=== PATIENT | female | born 1950 | race Caucasian/White ===

== ENCOUNTER → 2018-09-15 | Outpatient (CLI) | payer MEDICARE, BC ==
[~2018-09-15] MED LIST: IOPAMIDOL 76% 75 ML INFUS BTL 75 ML ONE
--- NOTE | 2018-09-15 08:52 | RADIOLOGY IMAGING REPORT ---
FACILITY: [facility] PATIENT NAME: Natalia Roca : 1950 MR: [id number] V: [id number] EXAM DATE: ORDERING PHYSICIAN: ALEENA PABLO TECHNOLOGIST: Location: [facility] Patient: Natalia Roca : 1950 Visit/Account:[id number] Date of Sevice: 09/15/2018 CHEST W CONTRAST HISTORY: Breast cancer TECHNIQUE: CT imaging was obtained through the chest with intravenous contrast. One of the followin g dose optimization techniques was utilized in the performance of this exam: automated exposure contr ol; adjustment of the mA and/or kv according to patient size; or use of iterative reconstruction tech nique. Specific details can be referenced in the facility's radiology CT exam operational policy. CONTRAST: 75 cc of Isovue-370 COMPARISON: None. FINDINGS: CHEST: Lower neck: Negative. Vessels: Negative Heart and pericardium: Negative. Mediastinum/hilum/lymph nodes: Right axillary level 1-3 lymph nodes with the largest level 2-3 lymph node measuring 2.8 x 1.5 cm (image 23). A right level 2 axillary node measures 1.8 x 1.5 cm (image 2 8). Left axillary lymph node dissection without left axillary lymphadenopathy. Nonenlarged right rupal r lymph nodes measuring up to 1.0 x 0.5 cm. Lungs/pleura: 3 mm noncalcified left lower lobe nodule (series 4 image 212). 2 mm right apical pulmo nary nodule (image 51). 2 mm right upper lobe nodule (image 103). No pleural effusion. Upper abdomen: Gallstones. Subcentimeter splenic cyst. 1.3 x 1.3 cm simple left renal cyst. Bones/soft tissues: 1.0 x 1.3 cm enhancing left breast nodule (image 49). 2 mm soft tissue nodule wi thin the right anterior lower chest wall IMPRESSION: 1. Right axillary lymphadenopathy outlined above with the largest lymph node measuring 2.8 x 1.5 cm. 2. Indeterminate noncalcified pulmonary nodules measuring up to 3 mm which should be followed. 3. 1.3 x 1.0 cm enhancing nodule within the left breast. Recommend correlation with other breast imag ing modalities and physical examination. 4. 2 mm soft tissue nodule within the right lower anterior chest wall which can be followed. Report Dictated By: Keron Sauer MD at 09/15/2018 8:16 AM Report E-Signed By: Keron Sauer MD at 09/15/2018 8:47 AM WSN:[id number]
== END ==
LOC: CT 06:52
PROVIDERS: ATTEND Internal Medicine Hematology & Oncology
DX: N63.20 Unspecified lump in the left breast, unspecified quadrant (principal); R91.8 Other nonspecific abnormal finding of lung field; R59.0 Localized enlarged lymph nodes; C50.812 Malignant neoplasm of overlapping sites of left female breast; Z17.0 Estrogen receptor positive status [ER+]; C50.911 Malignant neoplasm of unspecified site of right female breast; C77.3 Secondary and unspecified malignant neoplasm of axilla and upper limb lymph nodes; C77.1 Secondary and unspecified malignant neoplasm of intrathoracic lymph nodes
CPT/HCPCS: 71260; Q9967

== ENCOUNTER 2018-10-20 16:57 | Outpatient (RCR) | payer MEDICARE ==
[2018-10-21 12:59] VITALS: BP 139/77
[2018-10-21] MEDS ORDERED: PEGFILGRASTIM 6 MG/0.6 ML SYR SUBQ ONE (13:00)
== END 2018-11-27 08:11 | disposition home or self-care (01) ==
LOC: MERGE 16:57 → SPU 16:57
PROVIDERS: ATTEND Internal Medicine Hematology & Oncology
DX: C50.911 Malignant neoplasm of unspecified site of right female breast (principal); C77.3 Secondary and unspecified malignant neoplasm of axilla and upper limb lymph nodes
CPT/HCPCS: 96372; J2505

== ENCOUNTER 2019-03-16 11:22 | Outpatient (RCR) | payer MEDICARE ==
[2019-03-16] MEDS ORDERED: ASCO-182 PO (11:57)
[2019-03-16] MEDS ORDERED: IODI1GRA2 PO (11:57)
[2019-03-16] MEDS ORDERED: OMEG100T3 PO (11:57)
[2019-03-16] MEDS ORDERED: FLAX100041 PO (11:57)
[2019-03-16] MEDS ORDERED: LEVO88TA43 PO (11:57)
[2019-03-16] MEDS ORDERED: CHOL10005 PO (11:57)
[2019-03-16 11:58] VITALS: BP 141/75
--- NOTE | 2019-03-17 16:01 | ONCOLOGY CONSULTATION ---
EVENT DATE: March 16, 2019 CHIEF COMPLAINT/REASON FOR CONSULTATION Recurrent breast carcinoma with complex history listed below. Patient is referred for radiation therapy consideration to regional lymph nodes (right axilla and supraclavicular fossa). This is a 68-year-old lady who is referred to myself for radiation therapy considerations by Dr. Eaton at [facility]. Excellent summary note accompanied the patient, created 02/10/19. Oncology history is briefly listed below in a serial fashion for record review. ONCOLOGY HISTORY 1. Lumpectomy and lymph node dissection 09/09/1999. Tumor size 1.9 cm. Tumor is receptor negative and lymph node negative. Four cycles of AC chemotherapy and postoperative radiation therapy. 2. Right breast DCIS diagnosed 07/02. Tumor was ER/VA positive, treated with lumpectomy and radiation therapy. 3. 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 Tumor was ER and VA receptor positive, HER2 negative with incidental right axillary and subpectoral lymphadenopathy on staging. Biopsy of mediastinal lymph nodes is benign. Patient treated with TC chemotherapy in a neoadjuvant fashion. 4. Patient underwent bilateral mastectomy 02/01/2019. Left breast tumor was found to be 7.5 cm in maximal dimension with mixed ductal and lobular features, grade 2, with invasion of the dermis behind the nipple and muscle and skeletal involvement. Tumor was ER and VA receptor positive at 96% and 69%, HER2 negative. Margins greater than 2 mm posterior and 5 mm to other locations. Right breast specimen revealed the invasive lobular carcinoma to be 7.1 cm, low grade, with direct invasion to dermis behind the nipple without skin ulceration. No LVI. Margins negative. Tumor metastatic to 8 of 10 right axillary lymph nodes along with one intramammary lymph node positive. Largest lymph node was 2.5 cm with extracapsular extension. Tumor is ER positive 82%, VA 15%, HER2 negative. Ki-67 low at 1%. 5. Patient referred for radiation therapy considerations to the right axilla and supraclavicular fossa lymph nodes. She is also advised to start anastrozole daily and continue for up to 10 years. 6. Last staging study was a PET/CT scan on 01/01/19. No metastatic disease identified. Persistent uptake in the mediastinal lymph nodes, which was stable and has previously been sampled as benign on FNA cytology with endobronchial ultrasound 09/20/18. HISTORY This is a pleasant 68-year-old lady from the [facility] with an extensive history of breast carcinoma listed above. She is referred to me by Dr. Eaton with an excellent summary included for review today. The patient is accompanied by her . Following the patient's most recent bilateral mastectomy, she has been experiencing some tightness related to her mastectomy scars bilaterally. 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 I discussed the etiology of the pain and options regarding management. She declined referral for physical therapy at this time, but is working daily on her arm exercises. The patient denies any new or persistent headaches, weight loss, or any persistent bone pain. Patient is being seen for initial assessment today. ALLERGIES CODEINE, MORPHINE. PAST SURGICAL HISTORY 1. See above for prior biopsies of the breast dates. 2. Mastectomy date was 02/01/19. SOCIAL HISTORY Patient is . Two children, ages 43 and 47. She is retired. She does not smoke. She does drink one glass of wine per week. REVIEW OF SYSTEMS Notable for the tightness around the mastectomy scars as listed above, numbness along the medial aspect of the inner forearm on the right side to the level of the elbow. She is not aware of any palpable venous cords. She is not having any drainage from the incision. PHYSICAL EXAMINATION GENERAL: A 68-year-old female, medium frame. VITAL SIGNS: Weight 139. Height 62 inches. BP 141/75, pulse 93, respirations 16, O2 sat 94% on room air. LUNGS: Clear to auscultation bilaterally. HEART: Sounds regular. CHEST: Mastectomy scar, which is continuous anteriorly, was inspected with no signs of any active drainage. She does have a small area of numbness inferior and superior to the scar as expected. No suspicious subcutaneous nodularity at this time. No palpable axillary or supraclavicular fossa lymphadenopathy at this time. EXTREMITIES: No swelling on the upper extremities. ABDOMEN: Soft. No gross organomegaly. NEUROLOGIC: Grossly intact. MUSCULOSKELETAL: Notable for a slight limitation in patient's full arm extension bilaterally. She would like to work on exercises herself and was also given a few instructions today on some exercises to utilize. IMPRESSION This is a 68-year-old lady who was diagnosed with stage I left-sided breast carcinoma at age 49. She underwent appropriate surgery, Adriamycin and cyclophosphamide (AC) chemotherapy and radiation at that time. At age 58, she was diagnosed with ductal carcinoma in situ of the right breast and underwent lumpectomy and radiation therapy. Unfortunately at age 68 (10 to 19 years remote from her prior treatment), the patient was diagnosed with bilateral invasive ductal and lobular carcinoma. She appears to have lobular carcinoma predominantly on the right side and invasive ductal and lobular carcinoma on the left side with tumors approaching the 7 to 8 cm size bilaterally. The tumor on the right breast demonstrated lymph node metastasis with extracapsular extension. Subpectoral lymph node was positive as well as additional lymph nodes in the right axilla, and total of 8 of 10 lymph nodes were positive for malignant cells. The largest focus was 2.5 cm, which was located at the site of the sentinel lymph node with extranodal extension. She also had extranodal extension in additional lymph nodes in the right axilla. Additional risk factors for recurrence also include dermal invasion underneath the nipple, which surprisingly was on both breast specimens. On the left side, the tumor invaded into skeletal muscle. RECOMMENDATIONS I concur with the recommendations by Dr. Eaton. The safest plan would be to proceed with radiation therapy to the right axilla and follow the lymph node chain up to the supraclavicular fossa. No radiotherapy will be delivered to the chest wall unless there is obvious tumor recurrence at that location, in which case the patient would need a local excision, followed by superficial electron beam or tangential quispe to a relatively small volume. I told the patient I would like to proceed with targeting simulation in two weeks to allow further time for her to regain full arm mobility and for further healing. The radiation course would actually start the following week. That juncture should be approximately five to six weeks remote from the surgery. I explained the rational for treatment. I also encouraged the patient to utilize the aromatase inhibitor as advised by Dr. Eaton. She did ask if she could take naturopathic medications. She has contacted an individual already at this juncture and is awaiting formal consultation. I told her that would be fine as long as she lets her providers know exactly which agents she is taking in case she had any side effects or cross reactions. All questions were answered to the patient's satisfaction today over a one-hour visit. Presently, I would plan to deliver 5040 cGy in 28 fractions with subsequent field reduction to the site where the lymph nodes were present with extracapsular extension and boost those lymph nodes to a total dose of 5940 cGy. Treatment course will be completed over a time frame of approximately 33 fractions as standard fractionation. Thank you for the referral and opportunity to consult with the patient. Please do not hesitate to contact me if there are any questions or concerns regarding the above recommendations. ADDENDUM I will note for the patient's chart she would like to minimize surveillance studies in the future that utilize CT scans or PET scans due to her concern about radiation exposure. I told her I would pass the information along to Dr. Eaton and will certainly consider her wishes before making recommendations for radiographic studies. I told her I did need a treatment planning CT scan at this time to place appropriate markings in position for reference points for the computer planning. I also informed her the PET/CT study would be very useful to her oncologists the first two years following therapy to realize the response to treatments, both systemic and local. Dr.Tobin TREVIZO
== END 2019-03-16 18:00 | disposition home or self-care (01) ==
LOC: SPU 11:22
PROVIDERS: ATTEND Radiology Radiation Oncology
DX: C50.911 Malignant neoplasm of unspecified site of right female breast (principal); C50.912 Malignant neoplasm of unspecified site of left female breast; C77.3 Secondary and unspecified malignant neoplasm of axilla and upper limb lymph nodes
CPT/HCPCS: 99202

== ENCOUNTER 2019-03-27 16:12 | Outpatient (RCR) | payer MEDICARE ==
[~2019-03-27 16:12] MED LIST changes: +ASCO-182 PO; +CHOL10005 PO; +FLAX100041 PO; +IODI1GRA2 PO; -IOPAMIDOL 76% 75 ML INFUS BTL 75 ML ONE; +LEVO88TA43 PO; +OMEG100T3 PO
== END 2019-03-28 10:13 | disposition disaster alternative care site (69) ==
LOC: RAON 16:12
PROVIDERS: ATTEND Radiology Radiation Oncology
DX: C50.812 Malignant neoplasm of overlapping sites of left female breast (principal); Z17.0 Estrogen receptor positive status [ER+]; C50.811 Malignant neoplasm of overlapping sites of right female breast

== ENCOUNTER → 2019-03-30 | Outpatient (CLI) | payer MEDICARE, BC | LOC: LAB 09:06 | DX: E01.8 Other iodine-deficiency related thyroid disorders and allied conditions (principal) | CPT/HCPCS: 36415 ==

== ENCOUNTER 2019-05-21 10:07 | Outpatient (RCR) | payer MEDICARE, BC ==
--- NOTE | 2019-03-28 14:24 | ONCOLOGY CONSULTATION ---
EVENT DATE: March 16, 2019 CHIEF COMPLAINT/REASON FOR CONSULTATION Recurrent breast carcinoma with complex history listed below. Patient is referred for radiation therapy consideration to regional lymph nodes (right axilla and supraclavicular fossa). This is a 68-year-old lady who is referred to myself for radiation therapy considerations by Dr. Eaton at [facility]. Excellent summary note accompanied the patient, created 02/10/19. Oncology history is briefly listed below in a serial fashion for record review. ONCOLOGY HISTORY 1. Lumpectomy and lymph node dissection 09/09/1999. Tumor size 1.9 cm. Tumor is receptor negative and lymph node negative. Four cycles of AC chemotherapy and postoperative radiation therapy. 2. Right breast DCIS diagnosed 07/02. Tumor was ER/IN positive, treated with lumpectomy and radiation therapy. 3. 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 Tumor was ER and IN receptor positive, HER2 negative with incidental right axillary and subpectoral lymphadenopathy on staging. Biopsy of mediastinal lymph nodes is benign. Patient treated with TC chemotherapy in a neoadjuvant fashion. 4. Patient underwent bilateral mastectomy 02/01/2019. Left breast tumor was found to be 7.5 cm in maximal dimension with mixed ductal and lobular features, grade 2, with invasion of the dermis behind the nipple and muscle and skeletal involvement. Tumor was ER and IN receptor positive at 96% and 69%, HER2 negative. Margins greater than 2 mm posterior and 5 mm to other locations. Right breast specimen revealed the invasive lobular carcinoma to be 7.1 cm, low grade, with direct invasion to dermis behind the nipple without skin ulceration. No LVI. Margins negative. Tumor metastatic to 8 of 10 right axillary lymph nodes along with one intramammary lymph node positive. Largest lymph node was 2.5 cm with extracapsular extension. Tumor is ER positive 82%, IN 15%, HER2 negative. Ki-67 low at 1%. 5. Patient referred for radiation therapy considerations to the right axilla and supraclavicular fossa lymph nodes. She is also advised to start anastrozole daily and continue for up to 10 years. 6. Last staging study was a PET/CT scan on 01/01/19. No metastatic disease identified. Persistent uptake in the mediastinal lymph nodes, which was stable and has previously been sampled as benign on FNA cytology with endobronchial ultrasound 09/20/18. HISTORY This is a pleasant 68-year-old lady from the [facility] with an extensive history of breast carcinoma listed above. She is referred to me by Dr. Eaton with an excellent summary included for review today. The patient is accompanied by her . Following the patient's most recent bilateral mastectomy, she has been experiencing some tightness related to her mastectomy scars bilaterally. 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 I discussed the etiology of the pain and options regarding management. She declined referral for physical therapy at this time, but is working daily on her arm exercises. The patient denies any new or persistent headaches, weight loss, or any persistent bone pain. Patient is being seen for initial assessment today. ALLERGIES CODEINE, MORPHINE. PAST SURGICAL HISTORY 1. See above for prior biopsies of the breast dates. 2. Mastectomy date was 02/01/19. SOCIAL HISTORY Patient is . Two children, ages 43 and 47. She is retired. She does not smoke. She does drink one glass of wine per week. REVIEW OF SYSTEMS Notable for the tightness around the mastectomy scars as listed above, numbness along the medial aspect of the inner forearm on the right side to the level of the elbow. She is not aware of any palpable venous cords. She is not having any drainage from the incision. PHYSICAL EXAMINATION GENERAL: A 68-year-old female, medium frame. VITAL SIGNS: Weight 139. Height 62 inches. BP 141/75, pulse 93, respirations 16, O2 sat 94% on room air. LUNGS: Clear to auscultation bilaterally. HEART: Sounds regular. CHEST: Mastectomy scar, which is continuous anteriorly, was inspected with no signs of any active drainage. She does have a small area of numbness inferior and superior to the scar as expected. No suspicious subcutaneous nodularity at this time. No palpable axillary or supraclavicular fossa lymphadenopathy at this time. EXTREMITIES: No swelling on the upper extremities. ABDOMEN: Soft. No gross organomegaly. NEUROLOGIC: Grossly intact. MUSCULOSKELETAL: Notable for a slight limitation in patient's full arm extension bilaterally. She would like to work on exercises herself and was also given a few instructions today on some exercises to utilize. IMPRESSION This is a 68-year-old lady who was diagnosed with stage I left-sided breast carcinoma at age 49. She underwent appropriate surgery, Adriamycin and cyclophosphamide (AC) chemotherapy and radiation at that time. At age 58, she was diagnosed with ductal carcinoma in situ of the right breast and underwent lumpectomy and radiation therapy. Unfortunately at age 68 (10 to 19 years remote from her prior treatment), the patient was diagnosed with bilateral invasive ductal and lobular carcinoma. She appears to have lobular carcinoma predominantly on the right side and invasive ductal and lobular carcinoma on the left side with tumors approaching the 7 to 8 cm size bilaterally. The tumor on the right breast demonstrated lymph node metastasis with extracapsular extension. Subpectoral lymph node was positive as well as additional lymph nodes in the right axilla, and total of 8 of 10 lymph nodes were positive for malignant cells. The largest focus was 2.5 cm, which was located at the site of the sentinel lymph node with extranodal extension. She also had extranodal extension in additional lymph nodes in the right axilla. Additional risk factors for recurrence also include dermal invasion underneath the nipple, which surprisingly was on both breast specimens. On the left side, the tumor invaded into skeletal muscle. RECOMMENDATIONS I concur with the recommendations by Dr. Eaton. The safest plan would be to proceed with radiation therapy to the right axilla and follow the lymph node chain up to the supraclavicular fossa. No radiotherapy will be delivered to the chest wall unless there is obvious tumor recurrence at that location, in which case the patient would need a local excision, followed by superficial electron beam or tangential quispe to a relatively small volume. I told the patient I would like to proceed with targeting simulation in two weeks to allow further time for her to regain full arm mobility and for further healing. The radiation course would actually start the following week. That juncture should be approximately five to six weeks remote from the surgery. I explained the rational for treatment. I also encouraged the patient to utilize the aromatase inhibitor as advised by Dr. Eaton. She did ask if she could take naturopathic medications. She has contacted an individual already at this juncture and is awaiting formal consultation. I told her that would be fine as long as she lets her providers know exactly which agents she is taking in case she had any side effects or cross reactions. All questions were answered to the patient's satisfaction today over a one-hour visit. Presently, I would plan to deliver 5040 cGy in 28 fractions with subsequent field reduction to the site where the lymph nodes were present with extracapsular extension and boost those lymph nodes to a total dose of 5940 cGy. Treatment course will be completed over a time frame of approximately 33 fractions as standard fractionation. Thank you for the referral and opportunity to consult with the patient. Please do not hesitate to contact me if there are any questions or concerns regarding the above recommendations. ADDENDUM I will note for the patient's chart she would like to minimize surveillance studies in the future that utilize CT scans or PET scans due to her concern about radiation exposure. I told her I would pass the information along to Dr. Eaton and will certainly consider her wishes before making recommendations for radiographic studies. I told her I did need a treatment planning CT scan at this time to place appropriate markings in position for reference points for the computer planning. I also informed her the PET/CT study would be very useful to her oncologists the first two years following therapy to realize the response to treatments, both systemic and local.
[~2019-05-21 10:07] MED LIST changes: +SILV20CR2 TP
== END 2019-06-14 ==
LOC: RAON 10:07
PROVIDERS: ATTEND Radiology Radiation Oncology
DX: Z51.0 Encounter for antineoplastic radiation therapy (principal); C50.912 Malignant neoplasm of unspecified site of left female breast; Z17.0 Estrogen receptor positive status [ER+]
CPT/HCPCS: 77336; 77412; G0463; 77295; 77300; 77331; 77334; 99202